=== PATIENT | female | born 1945 ===

== ENCOUNTER 2018-02-04 10:20 | Day surgery (SDC) | payer MEDICARE, OTHER ==
[2018-02-04 11:11] VITALS: BMI 44.3
[2018-02-04 11:44] LABS: INR 1.1
[2018-02-04] MEDS ORDERED: Midazolam 2 MG/2 ML VIAL ONE ×2 (14:24→14:50)
[2018-02-04] MEDS ORDERED: Verapamil 2 ML ONE (15:01)
[2018-02-04] MEDS ORDERED: Iohexol 350mg/ml 100 ML ONE (15:23)
[2018-02-04] MEDS ORDERED: Oxycodone/Acetaminophen 5/325 mg Tab PO PRN (15:34)
[2018-02-04] MEDS ORDERED: Sodium Chloride 0.9% 1,000 ML IV SCH (15:45)
[2018-02-04] MEDS ORDERED: Protamine 50mg/5mL Inj IV ONE (15:52)
[2018-02-04] MEDS ORDERED: Oxycodone/Acetaminophen 5/325 mg Tab ONE (18:26)
--- NOTE | 2018-02-06 08:54 | VAS ---
DATE: 02/04/2018 INDICATIONS: Rola Nowak is a pleasant 72-year-old female who was admitted to [facility] with worsening lower extremity ulcers and gangrene of right lower extremity toes. She underwent a CTA showing severe distal SFA disease and therefore was brought to the concrete plant laborer for further evaluation and treatment. PROCEDURE PERFORMED: Distal abdominal aortogram with bilateral iliac runoff, selective bilateral iliofemoral angiogram with runoff, atherectomy and [employer]EARCH FO[employer] TECHNOLOGIST of right SFA with the use of 2-0 CSI atherectomy device and additional balloon angioplasty with a 6 x 40 Impact drug-coated balloon, regeneration from 90% down to 0% ABBIE-3 flow, 6-Kyrgyz left femoral artery access, and Mynx closure device for hemostasis. ANGIOGRAPHIC FINDINGS: Left common iliac and external iliac patent. Profunda femoris patent. SFA had multiple tandem 80% to 90% stenosis. Popliteal patent. Two-vessel runoff below the knee on the left lower extremity. Right lower extremity showed right common iliac patent, external iliac patent, profunda femoris patent. SFA had mid 95%calcific stenosis with two-vessel runoff below the knee. Intervention performed using a 6-[place]z 45-cm [employer] [place] sheath. An 0.018 support catheter was with the help of 0.018 wire was negotiated through the lesion. The lesion was then subsequently crossed with a Viper wire, 2-0 CSI atherectomy of the calcific 95% stenosis subsequently a balloon angioplasty with 6 x 40 mm drug-coated balloon with regeneration of 0% ABBIE-3 flow. Final angiogram was done showed good ABBIE-3 flow up to the level of the foot. IMPRESSION: Successful revascularization of a 95% calcific stenosis with the use of 2-0 CSI atherectomy device and additional balloon angioplasty with a 6 x 40 drug-coated balloon. RECOMMENDATIONS: The patient can be transferred back to [facility]. Continue dual antiplatelet therapy. Consider staged PCI of the left SFA in one to two weeks. Guero Crook MD
== END 2018-02-04 21:30 | disposition short-term general hospital (02) ==
LOC: C.CATHLAB 10:20
PROVIDERS: ATTEND Internal Medicine Interventional Cardiology
DX: I70.261 Atherosclerosis of native arteries of extremities with gangrene, right leg (principal); L97.919 Non-pressure chronic ulcer of unspecified part of right lower leg with unspecified severity
CPT/HCPCS: 36415; 37225; 82948; 85610; 85730; J1644; J1940; J2250; J2720; J3010; J7030; Q9967

== ENCOUNTER 2018-02-11 07:16 | Day surgery (SDC) | payer OTHER ==
[2018-02-11] MEDS ORDERED: Verapamil 2 ML ONE (13:58)
[2018-02-11] MEDS ORDERED: Nitroglycerin 50mg in D5W 50 MG/250 ML BOTTLE IV ONE (13:59)
[2018-02-11] MEDS ORDERED: Iodixanol 320 MG/ML 200 ML BOTTLE IV ONE (14:01)
[2018-02-11] MEDS ORDERED: Midazolam 2 MG/2 ML VIAL ONE (14:10)
[2018-02-11] MEDS ORDERED: Sodium Chloride 0.9% 500 ML IV SCH (15:00)
[2018-02-18 12:01] VITALS: RESP 18; O2SAT 98
--- NOTE | 2018-05-09 03:45 | VAS ---
DATE: 02/11/2018 INDICATION: Ms. Nowak is a 72-year-old female with history of hypertension, coronary artery disease, severe peripheral vascular occlusive disease with nonhealing ulcer of the lower extremities who was brought to the process laboratory specialist for evaluation and treatment of left lower extremity gangrene nonhealing ulcer. PROCEDURES PERFORMED: 1. Distal abdominal aortogram with bilateral iliac runoff. 2. Selective bilateral iliofemoral angiogram with runoff. 3. Percutaneous transluminal angioplasty of left superficial femoral artery, use of 7 x 60 drug-coated balloon, regeneration from 90% down to 10% ABBIE-3 flow, 6-Italian right femoral access, Mynx closure device for hemostasis. TECHNIQUES OF PROCEDURE: After obtaining informed consent, the patient was brought to the cardiac catheterization lab in post-absorptive nonsedated state. The patient was prepped and draped in the usual sterile fashion. Lidocaine 2% was used for infiltration of anesthesia. Using modified Seldinger technique, a 6-Italian was introduced in the right femoral artery. Subsequently, a left iliofemoral angiogram with runoff was performed. Subsequently, digital subtraction angiographic views of below the knee and right foot profile was obtained. Angiographic findings of the right lower extremity, right common iliac and external iliac patent, profunda femoris patent, SFA had distal nonobstructive 40% stenosis, popliteal artery patent, nonobstructive lesion, anterior tibial has ostial 50% stenosis, TP trunk patent, peroneal occluded, posterior tibial patent, [id number] anterior tibial artery had ostial 80% stenosis with 2-vessel runoff below the knee. Left lower extremity angiographic findings: Left SFA has a proximal to mid 90% stenosis, popliteal artery patent, anterior tibial artery at ostial 60% stenosis, TP trunk patent with 2-vessel runoff below the knee. TECHNICAL INTERVENTION: After doing the above angiographic findings, we decided to further proceed with angioplasty of the left SFA focal lesion. A 6 x 18 mm drug-coated balloon was used with angioplasty of the SFA. Final angiogram done showed regeneration of less than 10% ABBIE-3 flow. IMPRESSION: Successful drug-coated percutaneous transluminal angioplasty of the left superficial femoral artery using a 6 x 18 mm drug-coated balloon, regeneration from 90% down to less than 10% ABBIE-3 flow. RECOMMENDATIONS: The patient can be transferred back to [facility]. Continue dual antiplatelet therapy for peripheral vascular disease. Continue the patient on dual antiplatelet therapy. Guero Crook MD
== END 2018-02-11 17:30 | disposition short-term general hospital (02) ==
LOC: C.CATHLAB 07:16
PROVIDERS: ATTEND Internal Medicine Interventional Cardiology
DX: E11.52 Type 2 diabetes mellitus with diabetic peripheral angiopathy with gangrene (principal); E11.621 Type 2 diabetes mellitus with foot ulcer; I70.261 Atherosclerosis of native arteries of extremities with gangrene, right leg; L97.529 Non-pressure chronic ulcer of other part of left foot with unspecified severity; I10 Essential (primary) hypertension; I25.10 Atherosclerotic heart disease of native coronary artery without angina pectoris; Z87.891 Personal history of nicotine dependence

== ENCOUNTER 2018-04-08 09:32 | Day surgery (SDC) | payer OTHER ==
[2018-04-05 01:57] VITALS: BMI 44.3
[2018-04-08] MEDS ORDERED: Midazolam 2 MG/2 ML VIAL ONE (11:52)
[2018-04-08 14:25] LABS: ARTERIAL BLOOD GAS HCO3 23.2 mmol/L (21-28); ARTERIAL BLOOD GAS PCO2 51 mm/Hg (35-45); ARTERIAL BLOOD GAS PO2 71 mm/Hg (80-100)
[2018-04-08 14:26] LABS: ARTERIAL BLOOD GAS O2 SAT 95.5 % (95-98); ARTERIAL BLOOD GAS TCO2 26.7 mmol/L (22-28)
[2018-04-08 14:28] LABS: VENOUS BLOOD GAS BASE EXCESS -1.9 mmol/L (0.0-2.0); VENOUS BLOOD GAS PCO2 53 mmHg (40-60); VENOUS BLOOD GAS PO2 30 mm/Hg (30-55); VENOUS BLOOD PH 7.29 (7.32-7.43)
[2018-04-08 14:32] LABS: VENOUS BLOOD PH 7.28 (7.32-7.43)
[2018-04-08 14:33] LABS: VENOUS BLOOD GAS BASE EXCESS -3.7 mmol/L (0.0-2.0); VENOUS BLOOD GAS PCO2 50 mmHg (40-60); VENOUS BLOOD GAS PO2 30 mm/Hg (30-55)
--- NOTE | 2018-04-09 01:56 | VAS ---
DATE: 04/08/2018 INDICATIONS: Ms. Nowak is a 73-year-old female with history of CAD, status post left main stenting, severe peripheral vascular occlusive disease, status post bilateral atherectomies and angioplasties, who was brought for evaluation on non-ST elevation ME and CHF exacerbation. PROCEDURES PERFORMED: Complete heart catheterization with selective left and right coronary angiogram, left ventriculogram, simultaneous left ventricular and aortic pressure gradient, right heart catheterization with hemodynamics and saturations. RIGHT HEART CATHETERIZATION FINDINGS: RA pressure is 35/34 with mean of 29, RV pressure 83/24 with RVEDP of 34, PA pressure 77/36 with mean of 53. Pulmonary capillary wedge pressure with mean of 40. Cardiac output was calculated to be 3.73 liters per minute with cardiac index of 1.85 liters per minute per square meter area. Aortic valve area was calculated to be 0.64 sq cm based on saturations and cardiac output with thermodilution and Jeremy equation method with mean transaortic gradient of 35 mmHg. CORONARY ANATOMY: Left main stent, patent. LAD stent, patent. Distal LAD, small diffusely diseased, gives off two small diagonal branches, in the AV groove, small branch with diffuse 50% stenosis. RCA, proximal highly calcific 70% stenosis. Distal RCA patent. LVEF is about 25-30%. IMPRESSION: Severe aortic stenosis, moderate to severe right coronary artery disease, patent left anterior descending artery stent, severe cardiomyopathy, elevated filling pressures, and moderate pulmonary hypertension. RECOMMENDATIONS: Continue guideline-directed therapy for CAD and CHF. Consider evaluation for possible TAVR. Guero Crook MD
== END 2018-04-08 18:45 | disposition short-term general hospital (02) ==
LOC: C.CATHLAB 09:32
PROVIDERS: ATTEND Internal Medicine Interventional Cardiology
DX: I21.3 ST elevation (STEMI) myocardial infarction of unspecified site (principal); I25.10 Atherosclerotic heart disease of native coronary artery without angina pectoris; I27.20 Pulmonary hypertension, unspecified; I35.0 Nonrheumatic aortic (valve) stenosis; I42.9 Cardiomyopathy, unspecified; I50.9 Heart failure, unspecified; Z95.5 Presence of coronary angioplasty implant and graft
CPT/HCPCS: 82803; 82948; 93460; 99152; 99153; C1714; C1760; C1769; C1887; C1893; C1894; J1644; J2250; J3010